=== PATIENT | male | born 1970 | race Caucasian/White ===

== ENCOUNTER 2017-10-11 19:08 | Inpatient (IN) | payer OTHER ==
[~2017-10-11] VITALS: Ht 167.6 cm; Wt 99.8 kg
[2017-10-11 19:10] VITALS: BP 159/87
[2017-10-11] MEDS ORDERED: NACL 0.9% 1,000 ML IV ONE ×3 (19:18→22:45)
[2017-10-11] MEDS ORDERED: LORazepam 2 MG/ML VIAL IVP ONE (19:20)
[2017-10-11 19:45] LABS: BASOPHILS % (AUTO) 0.2 % (0.0-2.0); EOSINOPHILS # (AUTO) 0.1 K/uL (0-0.4); EOSINOPHILS % (AUTO) 0.8 % (0.0-4.0); HEMATOCRIT 38.7 % (36-52); HEMOGLOBIN 12.6 g/dL (12.0-18.0); LYMPHOCYTES # (AUTO) 4.1 K/uL (2.0-11.5); LYMPHOCYTES % (AUTO) 35.5 % (20.5-51.1); MEAN CORPUSCULAR HEMOGLOBIN 32 pg (27-31); MEAN CORPUSCULAR HGB CONC 33 g/dL (33-37); MEAN CORPUSCULAR VOLUME 96.8 fL (80-94); MONOCYTES # (AUTO) 0.7 K/uL (0.8-1.0); MONOCYTES % (AUTO) 5.8 % (1.7-9.3); NEUTROPHILS # (AUTO) 6.6 K/uL (1.8-7.7); NEUTROPHILS % (AUTO) 57.7 % (42.2-75.2); PLATELET COUNT (AUTO) 322 K/uL (140-450); RED BLOOD CELL COUNT(AUTO) 3.99 MIL/uL (4.20-6.10); RED CELL DISTRIBUTION WIDTH 13.5 % (11.6-13.7); WHITE BLOOD COUNT (AUTO) 11.4 K/uL (4.8-10.8)
[2017-10-11 19:51] LABS: APPEARANCE,URINE CLEAR (CLEAR); BILIRUBIN,URINE NEGATIVE (NEGATIVE); BLOOD, URINE 1+ (NEGATIVE); COLOR,URINE YELLOW (YELLOW); LEUKOCYTE ESTERASE ,URINE NEGATIVE (NEGATIVE); NITRITE, URINE NEGATIVE (NEGATIVE); UGLUCOSE TRACE (NEGATIVE)
[2017-10-11 19:55] LABS: BARBITURATE, URINE NEG. ng/ml (NEG <=200); BENZODIAZEPINE, URINE POS. ng/mL (NEG <=200); CANNABINOID, URINE NEG. ng/mL (NEG <=50); COCAINE, URINE NEG. ng/mL (NEG <=300); OPIATE, URINE NEG. ng/mL (NEG <=2000); PHENCYCLIDINE SCREEN,URINE NEG. ng/mL (NEG <=25)
[2017-10-11 20:00] LABS: RBC,URINE 0-5 (RARE) /HPF (0-5); WBC,URINE 0-5 (RARE) /HPF (0-5)
[2017-10-11 20:00] LABS: PROTHROMBIN TIME 10.1 secs (10.8-13.4)
[2017-10-11 20:08] LABS: ALBUMIN 4.1 g/dL (3.4-5.0); ANION GAP 17.1 (8-16); CARBON DIOXIDE 24.8 mmol/L (21-32); CREATININE 0.8 mg/dL (0.7-1.3); TOTAL BILIRUBIN 0.2 mg/dL (0.0-1.0)
[2017-10-11] MEDS ORDERED: ONDANSETRON 4 MG/2 ML VIAL IVP ONE (20:10)
[2017-10-11] MEDS ORDERED: MORPHINE SULFATE 4 MG/ML SYR IVP ONE ×2 (20:10→22:35)
[2017-10-11 20:17] LABS: POTASSIUM 2.9 mmol/L (3.5-5.1)
[2017-10-11] MEDS ORDERED: KCL 20 MEQ/WATER INJ PREMIX 100 ML IV ONE (20:35)
[2017-10-11] MEDS: NACL 0.9% 1,000 ML IV SCH (22:37)
[2017-10-11] MEDS ORDERED: MORPHINE SULFATE 4 MG/ML SYR ONE (22:39)
[2017-10-11] MEDS ORDERED: DOCUSATE SODIUM 100 MG GELCAP PO PRN (22:40)
[2017-10-11] MEDS ORDERED: HYDROcodone/APAP 5/325 MG 1 TAB TAB PO PRN (22:40)
[2017-10-11] MEDS ORDERED: ACETAMINOPHEN 325 MG TAB PO PRN (22:40)
[2017-10-11] MEDS ORDERED: ONDANSETRON 4 MG/2 ML VIAL IM/IVP PRN (22:40)
[2017-10-11 23:14] LABS: AMYLASE 42 U/L (25-115); CHOL/HDL RATIO 3.8 (1-4.5); FREE T4 (FREE THYROXINE) 0.73 ng/dL (0.76-1.46); HDL CHOLESTEROL 43 mg/dL (40-60); LDL (CALC) 77 mg/dL (60-100); MAGNESIUM 1.4 mg/dL (1.8-2.4); PHOSPHORUS 4.2 mg/dL (2.5-4.9); THYROID STIMULATING HORMONE 0.46 uIU/mL (0.34-3.74); TRIGLYCERIDES 220 mg/dL (30-150); VALPROIC ACID < 3 ug/ml (50-100)
[2017-10-11 23:30] VITALS: BP 140/77
[2017-10-11] MEDS ORDERED: DEXTROSE 50% 50 ML SYR IVP PRN (23:45)
[2017-10-12] MEDS: MORPHINE SULFATE 2 MG/ML SYR IVP PRN ×2 (00:11→09:26)
[2017-10-12] MEDS: amLODIPine 5 MG TAB PO SCH ×3 (00:12→21:16)
[2017-10-12] MEDS ORDERED: MAG SULF 2000 MG/WATER PREMIX 50 ML IV ONE (00:55)
[2017-10-12] MEDS ORDERED: LEVOFLOXACIN 750 MG/D5W PREMIX 150 ML IV SCH (01:00)
[2017-10-12] MEDS: oxyCODONE/APAP 5/325 MG 1 TAB TAB PO PRN ×2 (02:55→12:10)
[2017-10-12 04:39] VITALS: BP 133/76
[2017-10-12] MEDS ORDERED: CLINDAMYCIN 600 MG in DEXTROSE 5% 50 ML IV SCH (05:00)
[2017-10-12] MEDS ORDERED: CLINDAMYCIN 600 MG/4 ML VIAL ONE (05:11)
[2017-10-12] MEDS: BLOOD GLUCOSE MONITORING 1 DEV DEV FS SCH ×4 (06:17→21:24)
[2017-10-12] MEDS: INSULIN LISPRO SLIDING SCALE 100 UNITS/ML VIAL SUBQ PRN ×4 (06:24→21:24)
[2017-10-12] MEDS: NACL 0.9% 1,000 ML IV SCH ×2 (06:37→15:31)
[2017-10-12 08:00] VITALS: BP 146/89
[2017-10-12 08:11] LABS: BASOPHILS % (AUTO) 0.2 % (0.0-2.0); EOSINOPHILS # (AUTO) 0.1 K/uL (0-0.4); HEMATOCRIT 39.3 % (36-52); HEMOGLOBIN 12.7 g/dL (12.0-18.0); LYMPHOCYTES # (AUTO) 4.3 K/uL (2.0-11.5); LYMPHOCYTES % (AUTO) 32.3 % (20.5-51.1); MEAN CORPUSCULAR HEMOGLOBIN 32 pg (27-31); MEAN CORPUSCULAR HGB CONC 32 g/dL (33-37); MONOCYTES # (AUTO) 0.9 K/uL (0.8-1.0); MONOCYTES % (AUTO) 6.6 % (1.7-9.3); NEUTROPHILS % (AUTO) 59.9 % (42.2-75.2); PLATELET COUNT (AUTO) 328 K/uL (140-450); RED BLOOD CELL COUNT(AUTO) 4.01 MIL/uL (4.20-6.10); RED CELL DISTRIBUTION WIDTH 13.8 % (11.6-13.7); WHITE BLOOD COUNT (AUTO) 13.4 K/uL (4.8-10.8)
[2017-10-12] MEDS ORDERED: LACTOBACILLUS RHAMNOSUS GG 1 EACH CAP PO SCH (09:00)
[2017-10-12] MEDS ORDERED: LORazepam 1 MG TAB PO SCH (09:00)
[2017-10-12] MEDS ORDERED: lamoTRIgine 25 MG TAB PO SCH (09:00)
[2017-10-12] MEDS: NICOTINE TRANSD SYS 21 MG/24 HR PATCH TD SCH (09:00)
[2017-10-12] MEDS: PREGABALIN 25 MG CAP PO SCH ×2 (09:24→21:16)
[2017-10-12] MEDS: DULoxetine 30 MG CAPDR PO SCH ×2 (09:25→21:17)
[2017-10-12] MEDS: CARISOPRODOL 350 MG TAB PO SCH ×3 (09:26→16:58)
[2017-10-12] MEDS: chlordiazePOXIDE 25 MG CAP PO SCH ×3 (09:29→16:51)
[2017-10-12 09:33] LABS: CARBON DIOXIDE 29.9 mmol/L (21-32); CREATININE 0.9 mg/dL (0.7-1.3); POTASSIUM 3.9 mmol/L (3.5-5.1)
[2017-10-12 09:37] LABS: MAGNESIUM 1.8 mg/dL (1.8-2.4); PHOSPHORUS 3.7 mg/dL (2.5-4.9)
[2017-10-12 12:00] VITALS: BP 143/86
[2017-10-12] MEDS ORDERED: INSU100I7 SQ (12:15)
[2017-10-12] MEDS ORDERED: CLINDAMYCIN PHOS 600MG/D5W PM 50 ML IV SCH (13:00)
[2017-10-12] MEDS ORDERED: HYDROmorphone 1 MG/ML AMP IVP SCH (13:39)
[2017-10-12] MEDS: LORazepam 2 MG/ML VIAL IM/IVP PRN (13:52)
[2017-10-12] MEDS: ZOLPIDEM 5 MG TAB PO PRN (15:32)
[2017-10-12 16:00] VITALS: BP 131/73
[2017-10-12] MEDS: MORPHINE SULFATE 4 MG/ML SYR IVP PRN (16:44)
[2017-10-12 16:49] LABS: LACTATE DEHYDROGENASE 449 U/L (85-227)
[2017-10-12] MEDS ORDERED: metFORMIN 500 MG TAB PO SCH (17:00)
[2017-10-12] MEDS ORDERED: oxyCODONE/APAP 5/325 MG 1 TAB TAB PO SCH (18:00)
[2017-10-12] MEDS: oxyCODONE 5 MG TAB PO SCH ×2 (18:45→23:29)
[2017-10-12] MEDS ORDERED: oxyCODONE 10 MG TABER PO SCH (19:00)
[2017-10-12 20:00] VITALS: BP 154/94
[2017-10-12] MEDS ORDERED: CARISOPRODOL 350 MG TAB PO SCH (21:00)
[2017-10-12] MEDS ORDERED: TEMAZEPAM 15 MG CAP PO SCH (21:00)
[2017-10-12] MEDS: lamoTRIgine 25 MG TAB PO SCH (21:16)
[2017-10-12] MEDS: AMITRIPTYLINE 25 MG TAB PO SCH (21:16)
[2017-10-12 23:36] VITALS: BP 151/91
[2017-10-13] VITALS: BP 111/65
[2017-10-13] MEDS: MORPHINE SULFATE 4 MG/ML SYR IVP PRN (03:40)
[2017-10-13 04:00] VITALS: BP 145/81
[2017-10-13] MEDS: NACL 0.9% 1,000 ML IV SCH ×3 (04:58→20:46)
[2017-10-13] MEDS: BLOOD GLUCOSE MONITORING 1 DEV DEV FS SCH ×4 (06:18→20:36)
[2017-10-13] MEDS: oxyCODONE 5 MG TAB PO SCH (06:20)
[2017-10-13] MEDS: INSULIN LISPRO SLIDING SCALE 100 UNITS/ML VIAL SUBQ PRN ×4 (06:26→21:54)
[2017-10-13] MEDS ORDERED: MORPHINE SULFATE 2 MG/ML SYR IVP PRN (07:30)
[2017-10-13 08:00] VITALS: BP 142/74
[2017-10-13] MEDS: NICOTINE TRANSD SYS 21 MG/24 HR PATCH TD SCH (09:00)
[2017-10-13] MEDS ORDERED: FOLIC ACID 1 MG TAB PO SCH (09:00)
[2017-10-13] MEDS ORDERED: THIAMINE 200 MG/2 ML VIAL IM SCH (09:00)
[2017-10-13] MEDS ORDERED: MULTIVITAMIN 1 TAB PO SCH (09:00)
[2017-10-13] MEDS: MORPHINE SULFATE 2 MG/ML SYR IVP PRN ×2 (09:33→18:29)
[2017-10-13] MEDS: amLODIPine 5 MG TAB PO SCH ×2 (09:34→20:46)
[2017-10-13] MEDS: DULoxetine 30 MG CAPDR PO SCH ×2 (10:00→20:43)
[2017-10-13] MEDS: CARISOPRODOL 350 MG TAB PO SCH ×3 (10:00→17:24)
[2017-10-13] MEDS: chlordiazePOXIDE 25 MG CAP PO SCH ×3 (10:01→17:25)
[2017-10-13] MEDS: PREGABALIN 25 MG CAP PO SCH ×2 (10:01→20:44)
[2017-10-13 10:02] LABS: BASOPHILS % (AUTO) 0.2 % (0.0-2.0); EOSINOPHILS # (AUTO) 0.2 K/uL (0-0.4); EOSINOPHILS % (AUTO) 1.5 % (0.0-4.0); HEMATOCRIT 40.7 % (36-52); HEMOGLOBIN 13.3 g/dL (12.0-18.0); LYMPHOCYTES # (AUTO) 3.5 K/uL (2.0-11.5); LYMPHOCYTES % (AUTO) 28.2 % (20.5-51.1); MEAN CORPUSCULAR HEMOGLOBIN 32 pg (27-31); MEAN CORPUSCULAR HGB CONC 33 g/dL (33-37); MONOCYTES # (AUTO) 0.7 K/uL (0.8-1.0); MONOCYTES % (AUTO) 5.7 % (1.7-9.3); NEUTROPHILS # (AUTO) 7.9 K/uL (1.8-7.7); NEUTROPHILS % (AUTO) 64.4 % (42.2-75.2); PLATELET COUNT (AUTO) 334 K/uL (140-450); RED BLOOD CELL COUNT(AUTO) 4.19 MIL/uL (4.20-6.10); RED CELL DISTRIBUTION WIDTH 13.5 % (11.6-13.7); WHITE BLOOD COUNT (AUTO) 12.3 K/uL (4.8-10.8)
[2017-10-13] MEDS: lamoTRIgine 25 MG TAB PO SCH ×2 (10:17→20:45)
[2017-10-13 10:25] LABS: MAGNESIUM 1.6 mg/dL (1.8-2.4); PHOSPHORUS 2.5 mg/dL (2.5-4.9)
[2017-10-13 10:27] LABS: ANION GAP 11.8 (8-16); CARBON DIOXIDE 28.8 mmol/L (21-32); CREATININE 0.7 mg/dL (0.7-1.3); POTASSIUM 3.6 mmol/L (3.5-5.1)
[2017-10-13 12:00] VITALS: BP 136/78
[2017-10-13] MEDS ORDERED: MAG SULF 2000 MG/WATER PREMIX 50 ML IV ONE (12:25)
[2017-10-13] MEDS: LORazepam 2 MG/ML VIAL IM/IVP PRN (13:33)
[2017-10-13] MEDS: KETOROLAC 30 MG/ML VIAL IVP PRN ×2 (13:46→20:43)
[2017-10-13] MEDS: MAGNESIUM SULFATE 1GM in DEXTROSE 5% 100 ML PREMIX IV SCH ×2 (13:57→15:28)
[2017-10-13] MEDS ORDERED: TAMSULOSIN 0.4 MG CAP PO SCH (14:00)
[2017-10-13] MEDS ORDERED: GABAPENTIN 300 MG CAP PO SCH ×2 (14:35→17:00)
[2017-10-13 16:00] VITALS: BP 135/80
[2017-10-13] MEDS ORDERED: metFORMIN 500 MG TAB PO SCH (17:00)
[2017-10-13 20:00] VITALS: BP 148/85
[2017-10-13] MEDS: AMITRIPTYLINE 25 MG TAB PO SCH (20:45)
[2017-10-13] MEDS: ZOLPIDEM 5 MG TAB PO PRN (21:50)
[2017-10-13] MEDS ORDERED: CARISOPRODOL 350 MG TAB PO SCH (22:00)
[2017-10-14] VITALS: BP 111/65
[2017-10-14] MEDS: MORPHINE SULFATE 2 MG/ML SYR IVP PRN (03:21)
[2017-10-14 04:00] VITALS: BP_SYST 104; BP_SYST 130; BP_DIAS 50; BP_DIAS 77
[2017-10-14] MEDS: KETOROLAC 30 MG/ML VIAL IVP PRN (05:13)
[2017-10-14] MEDS: BLOOD GLUCOSE MONITORING 1 DEV DEV FS SCH (05:18)
[2017-10-14] MEDS: INSULIN LISPRO SLIDING SCALE 100 UNITS/ML VIAL SUBQ PRN (05:23)
[2017-10-14] MEDS ORDERED: MORPHINE SULFATE 2 MG/ML SYR IVP PRN (05:50)
[2017-10-14 06:15] LABS: BASOPHILS % (AUTO) 0.4 % (0.0-2.0); EOSINOPHILS # (AUTO) 0.2 K/uL (0-0.4); EOSINOPHILS % (AUTO) 1.7 % (0.0-4.0); HEMATOCRIT 37.3 % (36-52); HEMOGLOBIN 12.2 g/dL (12.0-18.0); LYMPHOCYTES # (AUTO) 3.7 K/uL (2.0-11.5); LYMPHOCYTES % (AUTO) 34.6 % (20.5-51.1); MEAN CORPUSCULAR HEMOGLOBIN 32 pg (27-31); MEAN CORPUSCULAR HGB CONC 33 g/dL (33-37); MEAN CORPUSCULAR VOLUME 97.4 fL (80-94); MONOCYTES # (AUTO) 0.7 K/uL (0.8-1.0); MONOCYTES % (AUTO) 7.1 % (1.7-9.3); NEUTROPHILS % (AUTO) 56.2 % (42.2-75.2); PLATELET COUNT (AUTO) 305 K/uL (140-450); RED BLOOD CELL COUNT(AUTO) 3.83 MIL/uL (4.20-6.10); RED CELL DISTRIBUTION WIDTH 13.7 % (11.6-13.7); WHITE BLOOD COUNT (AUTO) 10.6 K/uL (4.8-10.8)
[2017-10-14 07:35] LABS: ANION GAP 11.8 (8-16); CARBON DIOXIDE 27.9 mmol/L (21-32); POTASSIUM 3.7 mmol/L (3.5-5.1)
[2017-10-14 07:36] LABS: CREATININE 0.8 mg/dL (0.7-1.3)
[2017-10-14 07:44] LABS: MAGNESIUM 1.6 mg/dL (1.8-2.4); PHOSPHORUS 2.9 mg/dL (2.5-4.9)
[2017-10-14] MEDS ORDERED: TAMSULOSIN 0.4 MG CAP PO SCH (08:30)
[2017-10-14] MEDS ORDERED: ATORVASTATIN 20 MG TAB PO SCH (09:00)
== END 2017-10-14 06:02 | disposition left against medical advice (07) | DRG 100 ==
LOC: MED 19:08 → MTU 22:43 → MIC 10-12 21:06 → MTU 10-12 21:10
PROVIDERS: ADMIT General Practice; ATTEND General Practice
DX: G40.509 Epileptic seizures related to external causes, not intractable, without status epilepticus (principal); G92 Toxic encephalopathy; R65.10 Systemic inflammatory response syndrome (SIRS) of non-infectious origin without acute organ dysfunction; F10.129 Alcohol abuse with intoxication, unspecified; E11.65 Type 2 diabetes mellitus with hyperglycemia; E87.6 Hypokalemia; E83.42 Hypomagnesemia; E78.5 Hyperlipidemia, unspecified; F43.10 Post-traumatic stress disorder, unspecified; I10 Essential (primary) hypertension; W18.30XA Fall on same level, unspecified, initial encounter; G40.909 Epilepsy, unspecified, not intractable, without status epilepticus; F41.1 Generalized anxiety disorder; M53.82 Other specified dorsopathies, cervical region; G47.00 Insomnia, unspecified; F32.9 Major depressive disorder, single episode, unspecified; R00.0 Tachycardia, unspecified; F43.9 Reaction to severe stress, unspecified; Y90.3 Blood alcohol level of 60-79 mg/100 ml; F17.210 Nicotine dependence, cigarettes, uncomplicated; M54.9 Dorsalgia, unspecified; R74.0 Nonspecific elevation of levels of transaminase and lactic acid dehydrogenase [LDH]; G89.21 Chronic pain due to trauma; J32.9 Chronic sinusitis, unspecified; E86.0 Dehydration; N20.0 Calculus of kidney; K42.9 Umbilical hernia without obstruction or gangrene; K76.0 Fatty (change of) liver, not elsewhere classified; Z53.21 Procedure and treatment not carried out due to patient leaving prior to being seen by health care provider; Y93.89 Activity, other specified; Y92.89 Other specified places as the place of occurrence of the external cause; Y99.8 Other external cause status; Z83.3 Family history of diabetes mellitus; Z82.49 Family history of ischemic heart disease and other diseases of the circulatory system
CPT/HCPCS: 36415; 70450; 71045; 72125; 76700; 80048; 80053; 80156; 80305; 81001; 82140; 82150; 82550; 82948; 83036; 83605; 83615; 83690; 83735; 83880; 84100; 84134; 84439; 84443; 84479; 84484; 85025; 85610; 87040; 87081; 87086; 93005; 93925; 93970; 96361; 96365; 96366; 96375; 96376; 97110; 97116; 97530; 99285; G0482; J1170; J1815; J1885; J1956; J2060; J2270; J2405; J3411; J3475; J3480; J3490; J7030; J7060; Q0092

== ENCOUNTER 2018-06-07 12:36 | Emergency (ER) | payer OTHER ==
[~2018-06-07] VITALS: Ht 167.6 cm; Wt 104.3 kg
[2018-06-07 12:36] VITALS: BP 144/85
[~2018-06-07 12:36] MED LIST: INSU100I7 SQ
--- NOTE | 2018-06-07 12:45 | NUR ---
BIBA FOR SEIZURES. TONIC/CLONIC. HEMATOMA LT. FOREHEAD. VERSED 10 MG. INTRA NASAL IN THE FIELD.POST ICTAL ON ARRIVAL TO ER.HX: SEIZURE, STROKE X 2 MOS. AGO. TAKES KEPPRA AND ATIVAN. PT ACTIVELY SEIZING NOW. ED MD NOTIFIED.
[2018-06-07] MEDS ORDERED: LORazepam 2 MG/ML VIAL ONE (12:49)
[2018-06-07] MEDS ORDERED: NACL 0.9% 1,000 ML IV SCH (12:54)
--- NOTE | 2018-06-07 13:10 | NUR ---
pt taken to ct via [facility]
[2018-06-07 13:34] LABS: BASOPHILS # (AUTO) 0.1 K/uL (0.00-0.22); BASOPHILS % (AUTO) 0.8 % (0.0-2.0); EOSINOPHILS # (AUTO) 0.1 K/uL (0-0.4); EOSINOPHILS % (AUTO) 0.5 % (0.0-4.0); HEMATOCRIT 43.5 % (36-52); HEMOGLOBIN 14.9 g/dL (12.0-18.0); LYMPHOCYTES # (AUTO) 3.6 K/uL (2.0-11.5); LYMPHOCYTES % (AUTO) 29.5 % (20.5-51.1); MEAN CORPUSCULAR HEMOGLOBIN 33 pg (27-31); MEAN CORPUSCULAR HGB CONC 34 g/dL (33-37); MEAN CORPUSCULAR VOLUME 95.1 fL (80-94); MONOCYTES # (AUTO) 0.7 K/uL (0.8-1.0); MONOCYTES % (AUTO) 5.6 % (1.7-9.3); NEUTROPHILS # (AUTO) 7.7 K/uL (1.8-7.7); NEUTROPHILS % (AUTO) 63.6 % (42.2-75.2); PLATELET COUNT (AUTO) 346 K/uL (140-450); RED BLOOD CELL COUNT(AUTO) 4.58 MIL/uL (4.20-6.10); RED CELL DISTRIBUTION WIDTH 13.5 % (11.6-13.7); WHITE BLOOD COUNT (AUTO) 12.1 K/uL (4.8-10.8)
[2018-06-07 13:48] LABS: ANION GAP 15.9 (8-16); CARBON DIOXIDE 25.8 mmol/L (21-32); CHLORIDE 104 mmol/L (98-107); CREATININE 0.8 mg/dL (0.7-1.3); GFR ARICAN-AMERICAN 134 mL/min (>90); GLUCOSE 172 mg/dL (74-106); POTASSIUM 3.7 mmol/L (3.5-5.1); PROTHROMBIN TIME 9.4 secs (10.8-13.4); SODIUM SERUM 142 mmol/L (136-145); UREA NITROGEN, BLOOD 14 mg/dL (7-18)
[2018-06-07 13:55] LABS: ALBUMIN 4.1 g/dL (3.4-5.0); AMYLASE 61 U/L (25-115); ASPARTATE AMINOTRANSFERASE 21 U/L (15-37); LIPASE 64 U/L (73-393); MAGNESIUM 1.7 mg/dL (1.8-2.4); TOTAL BILIRUBIN 0.2 mg/dL (0.0-1.0)
--- NOTE | 2018-06-07 14:11 | NUR ---
PT RESTING ON BED; DAUGHTER AT BEDSIDE
--- NOTE | 2018-06-07 15:00 | NUR ---
PATIENT DOES NOT WANT TO BE ADMITTED TO HOSPITAL; WANTS TO GO HOME. ED MD MADE AWARE.
[2018-06-07 15:20] VITALS: BP 144/85
--- NOTE | 2018-06-07 15:21 | NUR ---
Patient discharged with v/s stable. Written and verbal after care instructions given and explained. Patient verbalized understanding. Ambulatory with steady gait. All questions addressed prior to discharge. Advised to follow up with PMD.
== END 2018-06-07 15:21 | disposition home or self-care (01) ==
LOC: MED 12:36
DX: G40.409 Other generalized epilepsy and epileptic syndromes, not intractable, without status epilepticus (principal); I10 Essential (primary) hypertension; E11.9 Type 2 diabetes mellitus without complications; J45.909 Unspecified asthma, uncomplicated; Z91.14 Patient's other noncompliance with medication regimen; Z79.4 Long term (current) use of insulin
CPT/HCPCS: 36415; 70450; 71045; 80053; 80173; 82150; 82550; 82948; 83605; 83690; 83735; 84484; 85025; 85610; 93005; 96360; 96361; 99284; G0482; J7030; Q0092; J2060

== ENCOUNTER 2019-03-13 11:45 | Emergency (ER) | payer OTHER, MEDICAID ==
[~2019-03-13] VITALS: Ht 180.3 cm; Wt 99.8 kg
--- NOTE | 2019-03-13 11:45 | NUR ---
PATIENT BIBA TO BED 4 AT THIS TIME.
--- NOTE | 2019-03-13 11:46 | NUR ---
DR. MCMULLEN AT BEDSIDE EVALUATING PATIENT.
[2019-03-13 11:51] VITALS: BP 151/77
--- NOTE | 2019-03-13 11:51 | NUR ---
49/M biba from home for evaluation of seizures. Pt had a witnessed seizure and fell to the ground and had a tonic clonic seizure lasting approixmately 1-2 minutes. When EMS arrived on scene patient was posticle then had another seizure witnessed by EMS. Patient was given a total of Versed 10mg intranasal prior to arrival. Pt arrived to ED on high flow oxygen 15L via non rebreather, 100% O2 saturation. GCS 10, 3,2,5. Patient arrived on 4 point restraints. Pt was combative with EMS prior to arrival. EMS established an IV 20 gauge to left AC. No seizure activity noted. Patient waking up while on EMS gurgulf hammock, was able to move himself from rgulf hammock to bed. Upon moving patient over to [facility] pt awake, asking questions, startled and confused about where he is at. Fire department speaking with patient explaining he had a few seizures and that he was at [facility]. Patient sat up, eyes open, recognizes where he is. GCS 15 at this time.
--- NOTE | 2019-03-13 11:54 | NUR ---
CODE BRAIN ACTIVATED. CT CALLED.
--- NOTE | 2019-03-13 11:56 | NUR ---
PT IS AWAKE ALERT X4. ANSWERING ALL QUESTIONS APPROPRIATELY. GCS 15.
[2019-03-13] MEDS ORDERED: LORazepam 2 MG/ML VIAL ONE (12:00)
--- NOTE | 2019-03-13 12:03 | NUR ---
Pt taken to CT via gurney on cardiac monitoring accompanied by CT techyuridia and HARDEEP Murry.
[2019-03-13] MEDS ORDERED: NACL 0.9% 500 ML IV ONE (13:35)
--- NOTE | 2019-03-13 13:43 | NUR ---
EKG AT BEDSIDE.
--- NOTE | 2019-03-13 14:14 | NUR ---
INFLUENZA SWAB DONE ON PT, SENT TO LAB
[2019-03-13 14:29] LABS: BASOPHILS % (AUTO) 0.4 % (0.0-2.0); EOSINOPHILS % (AUTO) 0.4 % (0.0-4.0); LYMPHOCYTES % (AUTO) 31.3 % (20.5-51.1); MEAN CORPUSCULAR HEMOGLOBIN 32 pg (27-31); MEAN CORPUSCULAR HGB CONC 33 g/dL (33-37); MEAN CORPUSCULAR VOLUME 96.9 fL (80-94); MONOCYTES # (AUTO) 0.8 K/uL (0.8-1.0); NEUTROPHILS # (AUTO) 5.8 K/uL (1.8-7.7); NEUTROPHILS % (AUTO) 59.9 % (42.2-75.2); PLATELET COUNT (AUTO) 314 K/uL (140-450); RED BLOOD CELL COUNT(AUTO) 4.34 MIL/uL (4.20-6.10); RED CELL DISTRIBUTION WIDTH 12.8 % (11.6-13.7); WHITE BLOOD COUNT (AUTO) 9.7 K/uL (4.8-10.8)
[2019-03-13] MEDS ORDERED: KETOROLAC 30 MG/ML VIAL IVP ONE (14:45)
[2019-03-13 14:58] LABS: ASPARTATE AMINOTRANSFERASE 11 U/L (15-37); CARBON DIOXIDE 29.5 mmol/L (21-32); CREATININE 0.7 mg/dL (0.7-1.3); GFR ARICAN-AMERICAN 155 mL/min (>90); GLUCOSE 209 mg/dL (74-106); TOTAL BILIRUBIN 0.3 mg/dL (0.0-1.0); UREA NITROGEN, BLOOD 8 mg/dL (7-18)
[2019-03-13] MEDS ORDERED: DULO30EC PO (15:26)
[2019-03-13] MEDS ORDERED: TAPE100T9 PO (15:26)
[2019-03-13] MEDS ORDERED: LAM200 PO (15:26)
[2019-03-13] MEDS ORDERED: ELA50 PO (15:30)
[2019-03-13] MEDS ORDERED: ACET-512 PO (15:30)
[2019-03-13] MEDS ORDERED: LORA-476 PO (15:30)
[2019-03-13] MEDS ORDERED: PREG100C PO (15:30)
--- NOTE | 2019-03-13 15:38 | NUR ---
URINE COLLECTED AND SENT TO LAB.
[2019-03-13 16:05] LABS: ALBUMIN 3.6 g/dL (3.4-5.0); ANION GAP 12.3 (8-16); CHLORIDE 104 mmol/L (98-107); POTASSIUM 3.8 mmol/L (3.5-5.1); SODIUM SERUM 142 mmol/L (136-145)
[2019-03-13 16:06] LABS: ACETAMINOPHEN < 0.5 ug/ml (10-30); SALICYLATE < 2.8 mg/dL (2.8-20.0)
[2019-03-13 16:36] LABS: BARBITURATE, URINE NEGATIVE ng/ml (NEG <=200)
[2019-03-13 16:37] LABS: BENZODIAZEPINE, URINE POSITIVE ng/mL (NEG <=200); CANNABINOID, URINE POSITIVE ng/mL (NEG <=50); COCAINE, URINE NEGATIVE ng/mL (NEG <=300); OPIATE, URINE NEGATIVE ng/mL (NEG <=2000); PHENCYCLIDINE SCREEN,URINE NEGATIVE ng/mL (NEG <=25)
[2019-03-13 17:01] VITALS: BP 151/85
--- NOTE | 2019-03-13 17:01 | NUR ---
IV removed, catheter intact and site benign. Applied folded 4x4 gauze and tape to stop bleeding.
== END 2019-03-13 17:01 | disposition home or self-care (01) ==
LOC: MED 11:45
DX: G40.509 Epileptic seizures related to external causes, not intractable, without status epilepticus (principal); S00.01XA Abrasion of scalp, initial encounter; R07.89 Other chest pain; J45.909 Unspecified asthma, uncomplicated; E11.9 Type 2 diabetes mellitus without complications; I10 Essential (primary) hypertension; Z79.891 Long term (current) use of opiate analgesic; Z79.899 Other long term (current) drug therapy; W01.198A Fall on same level from slipping, tripping and stumbling with subsequent striking against other object, initial encounter; Y92.89 Other specified places as the place of occurrence of the external cause; Y93.89 Activity, other specified; Y99.8 Other external cause status
CPT/HCPCS: 36415; 70450; 71250; 72125; 80053; 80305; 82948; 85025; 93005; 96372; 99284; G0480; G0482; J1885; J2060

== ENCOUNTER 2019-11-17 14:22 | Emergency (ER) | payer OTHER ==
[~2019-11-17] VITALS: Ht 167.6 cm; Wt 88.5 kg
[2019-11-17 14:22] VITALS: BP 126/82
[~2019-11-17 14:22] MED LIST changes: +ACET-512 PO; +DULO30EC PO; +ELA50 PO; +LAM200 PO; +LORA-476 PO; +PREG100C PO; +TAPE100T9 PO
--- NOTE | 2019-11-17 14:22 | NUR ---
Patient BIBA ALS, transferred to bed 11. RN evaluating patient at bedside.
--- NOTE | 2019-11-17 14:22 | NUR ---
49 Y/O MALE BIBA S/P SEIZURE. PT A&O X4. VSS, R/R EQUAL, AND UNLABORED. BG 133, 0/10 PAIN. NO POST ICTAL STATE NOTED. PT STATES HE CALLED 911, AFTER HAVING 10 MIN SEIZURE, HE STATES HE HAS PMH OF SEIZURE DISORDER, BUT BELIEVES THIS SEIZURE IS THE RESULT OF RX DRUGS WITHDRAWAL OF PERCOCET, OXYCODONE, XANAX, ATIVAN. PT ALSO STATES IT COULD BE FROM SLIP AND FALL 11/11 WHEN HE FELL AND HIT THE BACK OF HIS HEAD. [facility] PLACED 18G IN RAC. PT C/O DIZZINESS, CONFUSION, AND BACK PAIN. DENIES N/V/D, SOB, HEADACHE, COUGH, FEVER, CHILLS. PT PLACED ON CARDIAC, AND 02 MONITOR, SEIZURE PRECAUTIONS IN PLACE, SIDE RAIL X2, BED IN LOW POSITION, WILL CONTINUE TO MONITOR. NKDA PMH: SEIZURE, HTN, DM
[2019-11-17] MEDS ORDERED: NACL 0.9% 1,000 ML IV ONE (15:00)
[2019-11-17] MEDS ORDERED: LORazepam 2 MG/ML VIAL IVP ONE (15:00)
--- NOTE | 2019-11-17 15:30 | NUR ---
PT TAKEN TO CT
[2019-11-17 15:32] LABS: BASOPHILS # (AUTO) 0.1 K/uL (0.00-0.22); BASOPHILS % (AUTO) 0.6 % (0.0-2.0); EOSINOPHILS % (AUTO) 0.2 % (0.0-4.0); HEMATOCRIT 41.1 % (36-52); HEMOGLOBIN 13.4 g/dL (12.0-18.0); LYMPHOCYTES # (AUTO) 2.7 K/uL (2.0-11.5); MEAN CORPUSCULAR HEMOGLOBIN 32 pg (27-31); MEAN CORPUSCULAR HGB CONC 33 g/dL (33-37); MEAN CORPUSCULAR VOLUME 96.9 fL (80-94); MONOCYTES # (AUTO) 0.6 K/uL (0.8-1.0); MONOCYTES % (AUTO) 6.9 % (1.7-9.3); NEUTROPHILS # (AUTO) 5.9 K/uL (1.8-7.7); NEUTROPHILS % (AUTO) 63.3 % (42.2-75.2); PLATELET COUNT (AUTO) 401 K/uL (140-450); RED BLOOD CELL COUNT(AUTO) 4.25 MIL/uL (4.20-6.10); RED CELL DISTRIBUTION WIDTH 12.3 % (11.6-13.7); WHITE BLOOD COUNT (AUTO) 9.4 K/uL (4.8-10.8)
[2019-11-17 16:03] LABS: APPEARANCE,URINE CLEAR (CLEAR); BILIRUBIN,URINE 1+ (NEGATIVE); BLOOD, URINE NEGATIVE (NEGATIVE); COLOR,URINE YELLOW (YELLOW); LEUKOCYTE ESTERASE ,URINE NEGATIVE (NEGATIVE); NITRITE, URINE NEGATIVE (NEGATIVE); UGLUCOSE NEGATIVE (NEGATIVE)
--- NOTE | 2019-11-17 16:04 | NUR ---
PT RESTING IN BED, TALKING ON CELLPHONE TO [employer], AND REQUESTING FOOD. "I'M HUNGRY, I HAVEN'T ATE SINCE YESTERDAY." CALLED DIETARY, AND REQUESTED A SNACK FOR PT.
[2019-11-17 16:12] LABS: ALBUMIN 3.4 g/dL (3.4-5.0); ANION GAP 13.9 (8-16); ASPARTATE AMINOTRANSFERASE 11 U/L (15-37); CARBON DIOXIDE 28.9 mmol/L (21-32); CHLORIDE 105 mmol/L (98-107); CREATININE 0.8 mg/dL (0.6-1.3); GFR ARICAN-AMERICAN 133 mL/min (>90); GLUCOSE 123 mg/dL (74-106); POTASSIUM 3.8 mmol/L (3.5-5.1); SODIUM SERUM 144 mmol/L (136-145); TOTAL BILIRUBIN 0.3 mg/dL (0.0-1.0); UREA NITROGEN, BLOOD 8 mg/dL (7-18)
[2019-11-17 17:27] LABS: BARBITURATE, URINE NEGATIVE ng/ml (NEG <=200); BENZODIAZEPINE, URINE NEGATIVE ng/mL (NEG <=200); COCAINE, URINE NEGATIVE ng/mL (NEG <=300)
[2019-11-17 17:28] LABS: CANNABINOID, URINE POSITIVE ng/mL (NEG <=50); OPIATE, URINE NEGATIVE ng/mL (NEG <=2000); PHENCYCLIDINE SCREEN,URINE NEGATIVE ng/mL (NEG <=25)
--- NOTE | 2019-11-17 17:49 | NUR ---
PT QUIETLY RESTING IN BED, TALKING ON CELLPHONE. VSS, R/R EQUAL, AND UNLABORED. SEIZURE PRECAUTIONS IN PLACE, SIDE RAIL X2, BED IN LOW POSITION WILL CONTINUE TO MONITOR.
[2019-11-17 18:18] VITALS: BP 126/82
== END 2019-11-17 18:18 | disposition home or self-care (01) ==
LOC: MED 14:22
DX: R56.9 Unspecified convulsions (principal); F15.10 Other stimulant abuse, uncomplicated; J45.909 Unspecified asthma, uncomplicated; E11.9 Type 2 diabetes mellitus without complications; I10 Essential (primary) hypertension; Z79.899 Other long term (current) drug therapy
CPT/HCPCS: 36415; 70450; 80053; 80305; 81003; 85025; 93005; 96361; 96374; 99285; G0482; J2060; J7030

== ENCOUNTER 2020-01-01 02:58 | Inpatient (IN) | payer OTHER ==
[~2020-01-01] VITALS: Ht 167.6 cm; Wt 94.3 kg
[2020-01-01 03:04] VITALS: BP 131/74
[2020-01-01] MEDS ORDERED: NACL 0.9% 1,000 ML IV SCH (03:14)
[2020-01-01] MEDS ORDERED: VANCOMYCIN 1,000 MG VIAL ONE (03:24)
[2020-01-01] MEDS ORDERED: VANCOMYCIN 1,000 MG in DEXTROSE 5% 250 ML IV ONE (03:25)
[2020-01-01] MEDS ORDERED: KETOROLAC 30 MG/ML VIAL IVP ONE (03:25)
[2020-01-01 03:27] LABS: BASOPHILS # (AUTO) 0.1 K/uL (0.00-0.22); BASOPHILS % (AUTO) 0.6 % (0.0-2.0); HEMATOCRIT 40.8 % (36-52); HEMOGLOBIN 13.8 g/dL (12.0-18.0); LYMPHOCYTES # (AUTO) 2.7 K/uL (2.0-11.5); LYMPHOCYTES % (AUTO) 14.8 % (20.5-51.1); MEAN CORPUSCULAR HEMOGLOBIN 33 pg (27-31); MEAN CORPUSCULAR HGB CONC 34 g/dL (33-37); MEAN CORPUSCULAR VOLUME 96.3 fL (80-94); MONOCYTES # (AUTO) 1.5 K/uL (0.8-1.0); MONOCYTES % (AUTO) 8.4 % (1.7-9.3); NEUTROPHILS # (AUTO) 14.1 K/uL (1.8-7.7); NEUTROPHILS % (AUTO) 76.2 % (42.2-75.2); PLATELET COUNT (AUTO) 388 K/uL (140-450); RED BLOOD CELL COUNT(AUTO) 4.24 MIL/uL (4.20-6.10); RED CELL DISTRIBUTION WIDTH 13.4 % (11.6-13.7); WHITE BLOOD COUNT (AUTO) 18.5 K/uL (4.8-10.8)
[2020-01-01 03:41] LABS: ALBUMIN 4.2 g/dL (3.4-5.0); ANION GAP 11.1 (8-16); CARBON DIOXIDE 28.4 mmol/L (21-32); POTASSIUM 3.5 mmol/L (3.5-5.1); TOTAL BILIRUBIN 0.8 mg/dL (0.0-1.0)
[2020-01-01] MEDS ORDERED: MORPHINE SULFATE 2 MG/ML SYR IVP ONE (04:30)
[2020-01-01] MEDS: NACL 0.9% 1,000 ML IV SCH ×2 (08:12→21:25)
[2020-01-01] MEDS ORDERED: ZOLPIDEM 5 MG TAB PO PRN (08:55)
[2020-01-01] MEDS ORDERED: DOCUSATE SODIUM 100 MG GELCAP PO PRN (08:55)
[2020-01-01] MEDS ORDERED: HYDROcodone/APAP 7.5/325 MG 1 TAB PO PRN (08:55)
[2020-01-01] MEDS ORDERED: POTASSIUM CHLORIDE 10 MEQ TABER PO PRN (08:55)
[2020-01-01] MEDS ORDERED: ONDANSETRON 4 MG/2 ML VIAL IM/IVP PRN (08:55)
[2020-01-01] MEDS ORDERED: ACETAMINOPHEN 325 MG TAB PO PRN (08:55)
[2020-01-01] MEDS ORDERED: guaiFENesin DM 200/20 MG-10 ML 10 ML UDC PO PRN (08:55)
[2020-01-01 09:30] VITALS: BP 150/89
[2020-01-01 10:14] LABS: CHOL/HDL RATIO 3.8 (1-4.5); FREE T4 (FREE THYROXINE) 0.92 ng/dL (0.76-1.46); MAGNESIUM 1.8 mg/dL (1.8-2.4); PHOSPHORUS 2.6 mg/dL (2.5-4.9); THYROID STIMULATING HORMONE 1.08 uIU/mL (0.34-3.74)
[2020-01-01] MEDS: PANTOPRAZOLE 40 MG TABEC PO SCH (10:18)
[2020-01-01] MEDS ORDERED: DEXTROSE 50% 50 ML SYR IVP PRN (12:25)
[2020-01-01] MEDS ORDERED: INSULIN LISPRO SLIDING SCALE 100 UNITS/ML VIAL SUBQ PRN (12:25)
[2020-01-01] MEDS: PREGABALIN 50 MG CAP PO SCH (12:28)
[2020-01-01] MEDS: LORazepam 1 MG TAB PO SCH ×2 (12:28→18:38)
[2020-01-01] MEDS: INSULIN LANTUS 100 UNITS/ML 10 ML VIAL SUBQ SCH (12:58)
[2020-01-01 16:00] VITALS: BP 134/84
[2020-01-01] MEDS: BLOOD GLUCOSE MONITORING 1 DEV DEV FS SCH ×2 (16:30→21:15)
[2020-01-01] MEDS: HYDROcodone/APAP 10/325 MG 1 TAB TAB PO PRN (18:38)
[2020-01-01] MEDS: DULoxetine 30 MG CAPDR PO SCH (20:46)
[2020-01-01] MEDS ORDERED: AMITRIPTYLINE 50 MG TAB PO SCH (21:00)
[2020-01-02] VITALS: BP 152/75
[2020-01-02] MEDS: HYDROcodone/APAP 10/325 MG 1 TAB TAB PO PRN (04:22)
[2020-01-02 05:11] LABS: BASOPHILS # (AUTO) 0.3 K/uL (0.00-0.22); BASOPHILS % (AUTO) 2.3 % (0.0-2.0); EOSINOPHILS # (AUTO) 0.1 K/uL (0-0.4); EOSINOPHILS % (AUTO) 0.5 % (0.0-4.0); HEMATOCRIT 37.8 % (36-52); HEMOGLOBIN 12.6 g/dL (12.0-18.0); LYMPHOCYTES # (AUTO) 2.3 K/uL (2.0-11.5); LYMPHOCYTES % (AUTO) 18.6 % (20.5-51.1); MEAN CORPUSCULAR HEMOGLOBIN 32 pg (27-31); MEAN CORPUSCULAR HGB CONC 33 g/dL (33-37); MEAN CORPUSCULAR VOLUME 96.7 fL (80-94); MONOCYTES # (AUTO) 0.8 K/uL (0.8-1.0); MONOCYTES % (AUTO) 6.3 % (1.7-9.3); NEUTROPHILS # (AUTO) 8.8 K/uL (1.8-7.7); NEUTROPHILS % (AUTO) 72.3 % (42.2-75.2); PLATELET COUNT (AUTO) 335 K/uL (140-450); RED BLOOD CELL COUNT(AUTO) 3.91 MIL/uL (4.20-6.10); RED CELL DISTRIBUTION WIDTH 12.9 % (11.6-13.7); WHITE BLOOD COUNT (AUTO) 12.2 K/uL (4.8-10.8)
[2020-01-02 05:26] LABS: ANION GAP 12.3 (8-16); CARBON DIOXIDE 27.1 mmol/L (21-32); CREATININE 0.8 mg/dL (0.6-1.3); POTASSIUM 3.4 mmol/L (3.5-5.1)
[2020-01-02] MEDS: LORazepam 1 MG TAB PO SCH ×2 (06:19)
[2020-01-02] MEDS: BLOOD GLUCOSE MONITORING 1 DEV DEV FS SCH (06:37)
[2020-01-02 08:00] VITALS: BP 140/72
[2020-01-02] MEDS ORDERED: NON-FORMULARY ITEM (Insulin Glargine,Hum.rec.anlog (Basaglar Kwikpen U-100) 30 UNIT) SQ SCH (09:00)
[2020-01-02] MEDS: PANTOPRAZOLE 40 MG TABEC PO SCH (09:47)
[2020-01-02] MEDS: DULoxetine 30 MG CAPDR PO SCH (09:48)
[2020-01-02] MEDS: PREGABALIN 50 MG CAP PO SCH (09:48)
[2020-01-02] MEDS ORDERED: CEPH250C16 PO (09:54)
[2020-01-02] MEDS ORDERED: LORA10TA19 PO (09:54)
[2020-01-02] MEDS ORDERED: HYDR-5092 PO (09:55)
[2020-01-02] MEDS: INSULIN LANTUS 100 UNITS/ML 10 ML VIAL SUBQ SCH (10:22)
[2020-01-02 11:11] LABS: APPEARANCE,URINE HAZY (CLEAR); BILIRUBIN,URINE NEGATIVE (NEGATIVE); BLOOD, URINE NEGATIVE (NEGATIVE); COLOR,URINE YELLOW (YELLOW); LEUKOCYTE ESTERASE ,URINE NEGATIVE (NEGATIVE); NITRITE, URINE NEGATIVE (NEGATIVE); UGLUCOSE NEGATIVE (NEGATIVE)
[2020-01-02 12:20] LABS: T4 (THYROXINE) 6.8 ug/dL (4.5-12.0)
[2020-01-02 13:07] LABS: BARBITURATE, URINE NEGATIVE ng/ml (NEG <=200); BENZODIAZEPINE, URINE POSITIVE ng/mL (NEG <=200); COCAINE, URINE NEGATIVE ng/mL (NEG <=300)
[2020-01-02 13:08] LABS: CANNABINOID, URINE POSITIVE ng/mL (NEG <=50); OPIATE, URINE NEGATIVE ng/mL (NEG <=2000); PHENCYCLIDINE SCREEN,URINE NEGATIVE ng/mL (NEG <=25)
== END 2020-01-02 12:48 | disposition home or self-care (01) | DRG 872 ==
LOC: MED 02:58 → MMU 05:02
PROVIDERS: ADMIT Family Medicine; ATTEND Family Medicine
PROC: 3E0234Z Introduction of Serum, Toxoid and Vaccine into Muscle, Percutaneous Approach (ICD-10-PCS; principal; 2020-01-01)
DX: A41.9 Sepsis, unspecified organism (principal); E87.1 Hypo-osmolality and hyponatremia; L03.011 Cellulitis of right finger; E11.40 Type 2 diabetes mellitus with diabetic neuropathy, unspecified; J45.909 Unspecified asthma, uncomplicated; I10 Essential (primary) hypertension; E78.5 Hyperlipidemia, unspecified; T63.441A Toxic effect of venom of bees, accidental (unintentional), initial encounter; F17.210 Nicotine dependence, cigarettes, uncomplicated; Z82.49 Family history of ischemic heart disease and other diseases of the circulatory system; Z79.899 Other long term (current) drug therapy; Z79.4 Long term (current) use of insulin; Z23 Encounter for immunization; Z98.1 Arthrodesis status; Y93.89 Activity, other specified; Y92.89 Other specified places as the place of occurrence of the external cause; Y99.8 Other external cause status; Z83.3 Family history of diabetes mellitus
CPT/HCPCS: 36415; 71045; 73140; 76881; 80048; 80053; 80305; 81003; 82150; 82948; 83036; 83605; 83690; 83735; 83880; 84100; 84436; 84439; 84443; 84479; 84484; 85025; 85610; 85730; 87040; 87081; 90715; 93005; 96361; 96365; 96366; 99285; J0690; J1815; J1885; J2270; J3370; J7042; J7060; Q0092